=== PATIENT | male | born 1970 | race Two or more races ===

== ENCOUNTER 2018-12-30 11:14 | Day surgery (SDC) | payer MEDICAID, OTHER ==
[2018-12-30] VITALS (19 sets, daily range): BP systolic 97–127; BP diastolic 51–78; PULSE 60–80; RESP 0–18; Ht 175.3 cm; Wt 76.0 kg
[~2018-12-30] VITALS: Ht 175.3 cm; Wt 76.0 kg
[~2018-12-30 11:14] MED LIST: BALANCED SALT SOLN 15 ML OPH IRRIG ONE; CEFAZOLIN 2 GM/50 ML (PMX) 50 ML IVPB ONE; DICLOFENAC 0.1% 2.5 ML OPH OPER SCH; ERYTHROMYCIN 1 GM OPH OINT OP ONE; LIDOCAINE 4% (MPF) 5 ML INJ OPER ONE; MOXIFLOXACIN 0.5% 3 ML OPH OPER SCH; SOD CHLORIDE 0.9% 1,000 ML IV SCH
[2018-12-30] MEDS ORDERED: TETRACAINE 0.5% 4 ML OPH RIGHT EYE SCH (12:00)
--- NOTE | 2018-12-30 12:11 | HPN ---
Date/Time of Note Date/Time of Note DATE: 12/30/18 TIME: 12:11 Interval H&P Admission Note Pt. seen H&P reviewed: No system changes DOV MONTES DE OCA Dec 30, 2018 12:11
[2018-12-30] MEDS ORDERED: LIDOCAINE 2% (MDV) 20 ML INJ ONE (12:18)
[2018-12-30] MEDS ORDERED: TOBRAMYCIN/DEXAMETH 3.5 GM OPH OINT ONE (12:18)
[2018-12-30] MEDS ORDERED: LABETALOL HCL 20MG INJ IV PRN (12:30)
[2018-12-30] MEDS ORDERED: DIPHENHYDRAMINE 50 MG INJ IV PRN (12:30)
[2018-12-30] MEDS ORDERED: ONDANSETRON 4 MG INJ IV PRN (12:30)
[2018-12-30] MEDS ORDERED: ACETAMINOPHEN 325 MG TAB PO PRN (12:30)
[2018-12-30] MEDS ORDERED: FENTAnyl 50 MCG/ML VIAL IV PRN (12:30)
[2018-12-30] MEDS ORDERED: LIDOCAINE 1%/EPI (1:100,000) (MDV) 20 ML INJ ONE (12:30)
[2018-12-30] MEDS ORDERED: ALBUTEROL 0.083% (NEB) 2.5 MG/3 ML AMP HHN PRN (12:30)
[2018-12-30] MEDS ORDERED: ACETAMINOPHEN 500 MG TAB PO PRN (12:30)
[2018-12-30] MEDS ORDERED: OXYCODONE/ACETAMINOPHEN (5/325) TAB PO PRN (12:30)
[2018-12-30] MEDS ORDERED: hydrALAzine 20 MG INJ IV PRN (12:30)
[2018-12-30] MEDS ORDERED: BUPIVACAINE 0.75% (MPF) 10 ML INJ INJ ONE (12:30)
[2018-12-30] MEDS ORDERED: LIDOCAINE 2% (MDV) 20 ML INJ INJ ONE (12:30)
--- NOTE | 2018-12-30 12:31 | PREAC ---
Date/Time of Note Date/Time of Note DATE: 12/30/18 TIME: 12:29 Anesthesia Eval and Record Evaluation Time Pre-Procedure Interview DATE: 12/30/18 TIME: 12:29 Age 48 Sex male NPO: 8 hrs Preoperative diagnosis R pterygium Planned procedure R pterygium excision Past Medical History Past Medical History: Includes Cardio: Dyslipidemia GI: GERD Surgery & Anesthesia Issues No known issue Meds Anticoagulation: No Beta Murphy within 24 hr: No Reason Beta Murphy not given: Pt. not on B-Murphy No Active Prescriptions or Reported Meds Current Medications Sodium Chloride 1,000 ml @ 75 mls/hr [id number] IV ; Start 12/30/18 at 07:00 Diclofenac Sodium (Voltaren 0.1%) 1 drop Q5 MIN X 3 OPER Last administered on 12/30/18at 12:00; Admin Dose 1 DROP; Start 12/30/18 at 07:00 Moxifloxacin HCl (Vigamox) 1 drop Q5 MIN X 3 OPER Last administered on 12/30/18at 12:00; Admin Dose 1 DROP; Start 12/30/18 at 07:00 Tetracaine HCl (Tetracaine 0.5% Steri-Unit Chelsy) 1 drop PREOP RIGHT EYE Last administered on 12/30/18at 12:00; Admin Dose 1 DROP; Start 12/30/18 at 12:00 Meds reviewed: Yes Allergies Coded Allergies: No Known Allergy (Unverified , 12/30/18) Allergies Reviewed: Yes Labs/Studies Labs Reviewed: Reviewed by anesthesiologist (elevated cholesterol ) test: N/A Studies: ECG (nml, nsr), CXR (nad) Pre-procedure Exam Last vitals Vital Signs Date Temp Pulse Resp B/P (MAP) Pulse Ox O2 O2 Flow FiO2 Time Delivery Rate 12/30/18 98.5 80 18 125/73 98 Room Air 11:44 (90) Airway: Adequate mouth opening, Adequate thyromental dist Mallampati: Mallampati II Teeth: Normal Lung: Normal Heart: Normal ASA Physical Status ASA physical status: 5 Emergency: None Planned Anesthetic General/MAC: MAC Pre-operative Attestations Prior to commencing anesthesia and surgery, the patient was re-evaluated, there was verification of: *The patient's identity *The results of appropriate recent lab work and preoperative vital signs *The above evaluation not changing prior to induction *Anesthetic plan, risk benefits, alternative and complications discussed with patient/family; questions answered; patient/family understands, accepts and wishes to proceed. RADU BETHEA Dec 30, 2018 12:30
[2018-12-30] MEDS ORDERED: LIDOCAINE 1%/EPI (1:100,000) (MDV) 20 ML ONE (12:36)
[2018-12-30] MEDS ORDERED: LIDOCAINE 2% (SDV) 5 ML INJ ONE (12:36)
[2018-12-30] MEDS ORDERED: PROPOFOL 20 ML ONE (12:37)
--- NOTE | 2018-12-30 13:59 | PAC ---
Date/Time of Note Date/Time of Note DATE: 12/30/18 TIME: 13:58 Post-Anesthesia Notes Post-Anesthesia Note Last documented vital signs Vital Signs Date Temp Pulse Resp B/P Pulse Ox O2 O2 Flow FiO2 Time (MAP) Delivery Rate 12/30/18 98.5 97.7 80 67 18 16 125/73 98 98 Room 11:44 135 (90) 120 Air RA Activity: WNL Respiratory function: WNL Cardiovascular function: WNL Mental status: Baseline Pain reasonably controlled: Yes Hydration appropriate: Yes Nausea/Vomiting absent: Yes RADU BETHEA Dec 30, 2018 13:59
--- NOTE | 2018-12-30 14:08 | OPR ---
Date/Time of Note Date/Time of Note DATE: 12/30/18 TIME: 13:52 Operative Report Free Text/Dictation Procedure Date: 12/30/18 Pre-operative diagnosis: Visually significant pterygium right eye Postoperative diagnosis: Visually significant pterygium right eye Procedure: 1- Pterygium excision 2- Autograft 3- Conjunctivoplasty Surgeon: Dov Montes De Oca MD Manager Ambulatory: none Anesthesia Type: MAC, local anesthesia Anesthesiologist: FRANCISCO Tourniquet Time: NA Estimated blood loss: None Transfusions: none Specimen: None Grafts/Implants: None Tubes/Drains: None Complications: None Pt Condition Post Procedure:Stable Disposition: home Findings: opacified lens Indications for procedure: The patient is 48 year-old male with Visually significant pterygium, who presented with blurred vision, itching and chronic redness of the right eye. Past medical history is not significant. Past surgical history is not significant. The patient is not on any medication except eye drops. He is allergic to sulfa. There is no history of glaucoma or any other hereditary ophthalmic disease in the family. Review of system is negative except for the blurred vision in the affected eye. BCVA in the operated eye20/20, IOP13 mmHg. Pupils are reactive with no RAPD. Slit lamp exam: cornea is clear, deep anterior chamber, clear lens, there is no psudoexfoliation present at the pupillary margin or anterior lens capsule. On funds exam cup/disc ratio is 0.6, macula shows normal foveal reflex, retina is attached. Risk, benefit and alternative to cataract surgery was explained to the patient, who agreed to proceed with the procedure. The informed consent was signed by the patient. Description of procedure: The patient was seen by me along with anesthesia team in the pre op area and the surgical site was marked and confirmed. Anesthetic drops was instilled in surgical eye in the pre op. The patient was then brought back to the operating room placed in supine position. The eye was prepped with Betadine 5% and draped in sterile manner for the ophthalmic surgery. An eyelid speculum was was placed to keep the eyelid open. Subconjunctival injection of lidocaine with epinephrine was injected under the pterygium. The pterygium was removed with westcot scissors and toothed forceps. sclera was cleared from the scar tissue, hemostasis was performed using cautery. The wound was measured 5x5mm and a conjunctival was marked superiorly 6.5x6.5mm to get the graft. Scar tissue was removed from the cornea using the blade. Subconjunctival injection of lido and epi was done under the graft. The graft was removed with keeping tenon intact. the scleral bed dried out and one drop of sealant was placed over the sclera, tehn conjunctival graft was placed over the scleral bed and the corners was bunched up against the recipient part. one 8.0 vicryl suture was used to secure the conjunctiva inferiorly. The speculum was removed. Vigamox drops and Sterile antibiotic/steroid ointment was applied to the eye. A cotton patch and clear shield were placed over the operative eye. The patient was transferred to the recovery room in stable condition. Dov Montes De Oca MD [id number] DOV MONTES DE OCA Dec 30, 2018 14:07
== END 2018-12-30 15:59 | disposition home or self-care (01) ==
LOC: SDS 11:14
PROVIDERS: ATTEND Ophthalmology
DX: H11.001 Unspecified pterygium of right eye (principal); E78.5 Hyperlipidemia, unspecified
CPT/HCPCS: 65426; Z7610